=== PATIENT | male | born 2000 | race Two or more races ===

== ENCOUNTER 2022-07-23 07:18 | Emergency (ER) | payer OTHER ==
[2022-07-23 08:02] VITALS: BP 139/84; PULSE 84; RESP 18; TEMP 98.4; BMI 21.9
== END 2022-07-23 08:21 | disposition home or self-care (01) ==
LOC: JERFT 07:18 → JER 07:18 → JERFT 08:21
DX: S93.492A Sprain of other ligament of left ankle, initial encounter (principal); Y93.67 Activity, basketball
CPT/HCPCS: 73610-TC-LT-FY; 99283-25